=== PATIENT | male | born 1980 | race Two or more races ===

== ENCOUNTER 2016-04-08 16:17 | Emergency (ER) | payer MEDICAID, OTHER ==
[~2016-04-08] VITALS: Ht 170.2 cm; Wt 77.1 kg
[2016-04-08 17:08] VITALS: BP 131/78
[2016-04-08] MEDS ORDERED: TETANUS-DIPTH-ACEL PERTUSSIS 0.5ML SYRG IM ONE (17:15)
[2016-04-08] MEDS ORDERED: NEOMYCIN-BACITRACIN-POLYM UNITDOSE PKG TOP OINT TOP ONE (17:15)
[2016-04-08] MEDS ORDERED: LIDOCAINE 1% HCL (LOCAL ANESTH.) INJ 20ML MDV IJ ONE (17:15)
[2016-04-08] MEDS ORDERED: KETOROLAC TROMETH 60MG/2ML VIAL IM ONE (17:15)
[2016-04-08] MEDS ORDERED: cefTRIAXone SOD 1,000 MG VL IM ONE (18:00)
== END 2016-04-08 18:01 | disposition home or self-care (01) ==
LOC: ER 16:25
DX: S61.211A Laceration without foreign body of left index finger without damage to nail, initial encounter (principal); Z23 Encounter for immunization; W22.8XXA Striking against or struck by other objects, initial encounter; Y93.89 Activity, other specified; Y99.8 Other external cause status; Y92.89 Other specified places as the place of occurrence of the external cause
CPT/HCPCS: 12032; 73130; 90471; 90715; 96372; 99284; J1885; J2001

== ENCOUNTER 2016-04-10 12:54 | Emergency (ER) | payer MEDICAID ==
[~2016-04-10] VITALS: Ht 170.2 cm; Wt 77.1 kg
[2016-04-10 13:03] VITALS: BP 131/81
== END 2016-04-10 17:03 | disposition home or self-care (01) ==
LOC: ER 12:59
DX: S61.412D Laceration without foreign body of left hand, subsequent encounter (principal)

== ENCOUNTER 2016-05-01 10:44 | Emergency (ER) | payer MEDICAID ==
[~2016-05-01] VITALS: Ht 167.6 cm; Wt 77.1 kg
[2016-05-01 10:52] VITALS: BP 137/86
== END 2016-05-01 17:26 | disposition home or self-care (01) ==
LOC: ER 10:44
DX: S61.412D Laceration without foreign body of left hand, subsequent encounter (principal); Z48.02 Encounter for removal of sutures